=== PATIENT | female | born 1965 | race Caucasian/White ===

== ENCOUNTER → 2016-10-11 | Outpatient (CLI) | payer BC | END | disposition home or self-care (01) | LOC: C.PAPS 16:15 | PROVIDERS: ATTEND Obstetrics & Gynecology | DX: Z01.419 Encounter for gynecological examination (general) (routine) without abnormal findings (principal) ==

== ENCOUNTER → 2016-12-25 | Outpatient (CLI) | payer BC ==
--- NOTE | 2016-12-26 13:56 | MAMMOGRAPHY REPORT ---
BILATERAL DIGITAL SCREENING MAMMOGRAM TOMOSYNTHESIS WITH CAD: 12/25/2016 CLINICAL HISTORY: Asymptomatic. Patient failed to follow-up for a recommended short interval follow- up left diagnostic mammogram and ultrasound based on the June 2014 diagnostic recommendations. S he now presents 2-1/2 years later for routine screening. TECHNIQUE: Breast tomosynthesis in addition to standard 2D mammography was performed. Current study was also evaluated with a Computer Aided Detection (CAD) system. COMPARISON: Comparison is made to exams dated: 07/15/2014 ultrasound, 07/15/2014 mammogram, 07/08/2014 mammogram, 04/11/2013 mammogram, 03/06/2011 mammogram, and 11/01/2009 mammogram - [facility]. BREAST COMPOSITION: The tissue of both breasts is heterogeneously dense, which may obscure small mas ses. FINDINGS: A nodular asymmetry in the posterior left breast on the CC view is less conspicuous compare d to the 2014 mammogram. There is stable asymmetry in the superior posterior right breast on the MLO view. No new suspicious mass, architectural distortion or cluster of microcalcifications is seen. IMPRESSION: ACR BI-RADS CATEGORY 1: NEGATIVE There is no mammographic evidence of malignancy. A 1 year screening mammogram is recommended. The pa tient will receive written notification of the results. Approximately 10% of breast cancers are not detected with mammography. A negative mammographic report should not delay biopsy if a clinically suggestive mass is present. Jaida Priest M.D. ay/:12/25/2016 16:04:45 [employer] Screw Hole: [place], [facility] letter sent: Normal 1/2 BI-RADS Code: ACR BI-RADS Category 1: Negative
== END | disposition home or self-care (01) ==
LOC: C.MAMM 13:32
PROVIDERS: ATTEND Obstetrics & Gynecology
DX: Z12.31 Encounter for screening mammogram for malignant neoplasm of breast (principal)

== ENCOUNTER → 2017-02-16 | Outpatient (CLI) | payer BC ==
--- NOTE | 2017-02-16 12:35 | DIAGNOSTIC IMAGING REPORT ---
L HAND MIN 3 VIEWS ROUTINE CLINICAL HISTORY: M25.449 EFFUSION,UNSPECIFIED HAND LEFT HAND PAIN COMPARISON: None. DISCUSSION: No acute fractures are visualized. There are osteoarthritic changes, most pronounced at the level of the proximal and distal interphalangeal joints. There is soft tissue swelling at the level of the second and third proximal interphalangeal joints. There is minimal subluxation at the level of the third proximal interphalangeal joint. IMPRESSION: Moderate osteoarthritic changes, most pronounced involving the proximal interphalangeal joints Electronically signed by: Jose Alberto Guerra M.D. 02/16/2017 12:34 PM Dictated Date/Time: 02/16/2017 12:32 PM
== END | disposition home or self-care (01) ==
LOC: C.RAD 12:11
PROVIDERS: ATTEND Family Medicine
DX: M25.449 Effusion, unspecified hand (principal); M19.042 Primary osteoarthritis, left hand